=== PATIENT | female | born 1955 | race Caucasian/White ===

== ENCOUNTER 2017-10-30 10:08 | Emergency (ER) | payer OTHER, SELFPAY ==
[2017-10-30 10:11] VITALS: BP 192/89; PULSE 77; RESP 17; TEMP 36.8; O2SAT 94; BMI 24.6
--- NOTE | 2017-10-30 10:24 | ED.VISSUMM ---
- ER Visit Summary Date of Service: 10/30/17 Chief Complaint: Abdominal pain History of Present Illness: The patient is a 62 F presenting with left lower quadrant abdominal pain. She states this started 2 days ago. She had a colonoscopy [address] Lindsay. She states since that time she has had pain in the left lower quadrant. She believes her colonoscopy results were normal. She called Dr. Lindsay's office today and was advised to come to the ED for further evaluation. She denies nausea, vomiting, diarrhea, constipation. Denies blood in her stool. Denies fever. Physical Examination: Vitals are stable. Patient is afebrile. Alert no acute distress. HEENT exam is unremarkable. Neck is supple. Lungs are clear and equal bilaterally. Heart is regular rate and rhythm. Abdomen is soft left lower quadrant tenderness with no guarding or rebound Extremities are unremarkable. Skin is warm and dry. Remainder of exam is unremarkable. Emergency Department Course and Treatment: Patient declined medications. CBC, CMP unremarkable. Urinalysis unremarkable. CT abdomen pelvis with IV and oral contrast shows normal enhanced CT of the abdomen. On reevaluation, patient is resting comfortably. Discussed with Dr. Lindsay. He recommends starting her on Bentyl. She is advised to follow-up with Dr. Lindsay. Advised return to ED if worsening complaints. Disposition: Discharge home Impression: Abdominal pain This note was generated with [employer] dictation software. It may contain incorrect words, spelling, and punctuation that were not noted in review of the chart prior to signing ED Disposition - Plan for ED Patient: Chief Complaint: Abd Pain Instructions: ED Abdominal Pain Unkn Cause Prescriptions: Dicyclomine HCl [Bentyl] 20 mg PO TIDAC #20 capsule Referrals: Gus Lindsay MD [CONSULTING PHYSICIAN] - Donnell Lawson MD [Primary Care Provider] -
[2017-10-30 10:33] LABS: Absolute Lymphocyte Count 1.24 X10^3/ul (0.83-4.51); Absolute Neutrophil Count 3.2 X10^3/uL (2.0-7.7); Basophil# 0.03 X10^3/uL; Basophil% 0.6 % (0-1); Eosinophils% 2.1 % (0-5); Hematocrit 40.1 % (37-47); Hemoglobin 13.1 g/dl (12.0-15.0); Lymphocyte # 1.24 X10^3/ul (4.0); Lymphocyte % 25.5 % (19-41); Mean Corp Hgb Conc 32.7 g/gl (32-36); Mean Corpuscular Hgb 31.5 pg (27.0-32.0); Mean Corpuscular Volume 96.4 fL (81-99); Mean Platelet Vol. 10.7 fl (6.2-12.0); Monocyte% 6.2 % (0-10); Neutrophil # 3.18 X10^3/uL (2.7-7.7); Neutrophil % 65.4 % (47-70); Platelet Count 265 K/mm3 (150-450); RBC Distribution Width CV 11.9 % (11.6-14.6); RBC Distribution Width SD 40.7 fl (35.1-43.9); Red Blood Count 4.16 M/mm3 (4.2-5.4); White Blood Count 4.9 K/mm3 (4.4-11.0)
[2017-10-30 10:34] LABS: POSITIVE COUNT NO; POSITIVE DIFFERENTIAL NO; POSITIVE MORPHOLOGY NO
[2017-10-30 10:40] LABS: Bacteria 0 SEEN /hpf (None Seen); Mucous, Urine 0 SEEN /hpf (<or=2+); Red Blood Cells-Urine 0 SEEN /hpf (0-5); Squamous Epithelial Cells - UA 0 SEEN /hpf (5-10); White Blood Cells 0 SEEN /hpf (0-5)
[2017-10-30 10:42] LABS: Color, Urine Yellow (Yellow); Glucose, Dipstick Normal (Normal); Ketone-Dipstick Negative (Negative); Leukocyte Esterase-Dipstick Negative /ul (Negative); Nitrite-Dipstick Negative (Negative); Occult Blood-Urine Negative /ul (Negative); Protein-Dipstick Negative (Negative); Urine Bilirubin Dipstick Negative (Negative); Urine Clarity Sl. Cloudy (Clear); Urine Urobilinogen Normal (Normal)
[2017-10-30 10:48] LABS: ALB/GLOB Ratio 1.1 RATIO (0.9-2.4); AST(SGOT) 14 U/L (15-37); Alanine Aminotransfer ALT/SGPT 22 U/L (13-56); Albumin, Serum 3.9 g/dL (3.2-5.0); Alkaline Phosphatase 71 U/L (45-117); Anion Gap 6 (5-15); BUN 13 mg/dL (7-18); BUN/Creat Ratio 19.1 RATIO (10-20); Calcium,Total 8.8 mg/dL (8.5-10.1); Chloride 105 mmol/L (98-107); Creatinine, Serum 0.68 mg/dL (0.55-1.02); EST Glomerular Filtration Rate 93 mL/min (>60); Est Glom Filt Rate - Afr Amer 112 mL/min (>60); Estimated Creatinine Clearance 89.65 ml/min; Globulin 3.5 g/dL (2.2-4.2); Glucose 125 mg/dL (74-106); Protein, Total 7.4 g/dL (6.4-8.2); Sodium Level 139 mmol/L (136-145)
[2017-10-30 13:35] VITALS: BP 172/83; PULSE 71; RESP 18; O2SAT 99
--- NOTE | 2017-10-30 14:02 | NURSING ---
TRYING TO REACH DR PFEIFFER, GASTROENTERITIS [phone] [facility]
--- NOTE | 2017-10-30 14:05 | ED.DEP ---
ED Disposition - Plan for ED Patient: Chief Complaint: Abd Pain Instructions: ED Abdominal Pain Unkn Cause Prescriptions: Dicyclomine HCl [Bentyl] 20 mg PO TIDAC #20 capsule Referrals: Donnell Lawson MD [Primary Care Provider] - Gus Lindsay MD [CONSULTING PHYSICIAN] -
[2017-10-30 14:23] VITALS: BP 178/70; PULSE 62; RESP 18; O2SAT 97
== END 2017-10-30 14:24 | disposition home or self-care (01) ==
PROVIDERS: Emergency Provider Emergency Medicine; Family Provider Family Medicine; PCP Family Medicine
DX: R10.32 Left lower quadrant pain (principal); Z79.899 Other long term (current) drug therapy
CPT/HCPCS: 74177; 80053; 81001; 85025; 99283; Q9967; A4216; J2405

== ENCOUNTER 2018-07-22 12:42 | Observation (INO) | payer OTHER, SELFPAY ==
[2018-07-22] VITALS (10 sets, daily range): BP systolic 135–185; BP diastolic 65–95; PULSE 68–102; RESP 14–18; TEMP 36.6–37.6; O2SAT 93–99; BMI 25.1
--- NOTE | 2018-07-22 13:05 | CT_ITS ---
STUDY: CT ABDOMEN AND PELVIS WITH CONTRAST REASON FOR EXAM: Female, 63 years old. One day history of right lower quadrant pain. Comparison is made with prior study dated October 30, 2017. RADIATION DOSAGE (If Supplied By Facility): CTDIvol = ( 13.82 ) mGy, DLP = ( 883.67 ) mGycm TECHNIQUE: Transaxial images were obtained from the dome of the diaphragm to the symphysis pubis with oral contrast. 100 IV/Oral Isovue 300 was administered. Sagittal and coronal images were reconstructed. Individualized dose optimization techniques were used for this CT. COMPARISON: Comparison is made with prior study October 30, 2017. FINDINGS: The visualized lung bases are unremarkable. The visualized portions of the heart are within normal limits. Stable 6 mm cyst in the anterior aspect of the right lobe of the liver. Normal gallbladder and extrahepatic biliary system. Normal spleen. Normal pancreas. Normal bilateral adrenal glands. Normal right kidney. Normal left kidney. Normal visualized stomach. Normal small intestine. Normal colon. There is a tubular, thick-walled appendix (>7mm), consistent with acute appendicitis. There is scattered atherosclerotic calcification of the abdominal aorta, without a demonstrated aneurysm. Normal inferior vena cava. Normal retroperitoneum. Normal urinary bladder. Normal abdominal wall. Normal osseous structures. CT/Abdomen/Pelvis WITH Contrast IMPRESSION: Findings in keeping with a noncomplicated acute appendicitis. Stable subcentimeters cyst in the anterior right lobe of the liver. Electronically Signed: Patrick Snow, at 16:04 EDT , Service support ,
[2018-07-22] MEDS: Ondansetron 4 MG/2 ML Vial IV (13:29)
[2018-07-22] MEDS: 0.9% Normal Saline 1,000 ML 125 ML IV ×2 (13:29→22:06)
[2018-07-22 13:39] LABS: ALB/GLOB Ratio 1.2 RATIO (0.9-2.4); AST(SGOT) 17 U/L (15-37); Alanine Aminotransfer ALT/SGPT 22 U/L (13-56); Albumin, Serum 4.1 g/dL (3.2-5.0); Alkaline Phosphatase 85 U/L (45-117); Anion Gap 7 (5-15); BUN 9 mg/dL (7-18); BUN/Creat Ratio 14.5 RATIO (10-20); Calcium,Total 9.4 mg/dL (8.5-10.1); Chloride 97 mmol/L (98-107); Creatinine, Serum 0.62 mg/dL (0.55-1.02); EST Glomerular Filtration Rate 103 mL/min (>60); Est Glom Filt Rate - Afr Amer 125 mL/min (>60); Estimated Creatinine Clearance 97.06 ml/min; Globulin 3.3 g/dL (2.2-4.2); Glucose 149 mg/dL (74-106); Lipase 75 U/L (73-393); Potassium 3.6 mmol/L (3.5-5.1); Protein, Total 7.4 g/dL (6.4-8.2); Sodium Level 130 mmol/L (136-145)
[2018-07-22 13:41] LABS: Bacteria 0 SEEN /hpf (None Seen); Mucous, Urine 0 SEEN /hpf (<or=2+); Red Blood Cells-Urine 0 SEEN /hpf (0-5); Squamous Epithelial Cells - UA 0 SEEN /hpf (5-10); White Blood Cells 0 SEEN /hpf (0-5)
[2018-07-22 13:42] LABS: Color, Urine Yellow (Yellow); Glucose, Dipstick Normal (Normal); Ketone-Dipstick Negative (Negative); Leukocyte Esterase-Dipstick 25 /ul (Negative); Nitrite-Dipstick Negative (Negative); Occult Blood-Urine Negative /ul (Negative); Protein-Dipstick 15 mg/dl (Negative); Urine Bilirubin Dipstick Negative (Negative); Urine Clarity Sl. Cloudy (Clear); Urine Urobilinogen Normal (Normal)
[2018-07-22 13:43] LABS: Absolute Neutrophil Count 8.3 X10^3/uL (2.0-7.7); Basophil# 0.01 X10^3/uL; Basophil% 0.1 % (0-1); Hematocrit 38.7 % (37-47); Hemoglobin 12.9 g/dl (12.0-15.0); Lymphocyte % 5.5 % (19-41); Mean Corp Hgb Conc 33.3 g/gl (32-36); Mean Corpuscular Hgb 30.6 pg (27.0-32.0); Mean Corpuscular Volume 91.7 fL (81-99); Mean Platelet Vol. 11.2 fl (6.2-12.0); Monocyte% 3.3 % (0-10); Neutrophil # 8.34 X10^3/uL (2.7-7.7); Platelet Count 253 K/mm3 (150-450); RBC Distribution Width CV 11.7 % (11.6-14.6); RBC Distribution Width SD 38.8 fl (35.1-43.9); Red Blood Count 4.22 M/mm3 (4.2-5.4); White Blood Count 9.2 K/mm3 (4.4-11.0)
[2018-07-22 13:44] LABS: Differential Indicated SCAN CRITERIA MET; POSITIVE COUNT NO; POSITIVE DIFFERENTIAL YES; POSITIVE MORPHOLOGY NO
[2018-07-22 13:46] LABS: Lactic Acid 1.5 mmol/L (0.4-2.0)
--- NOTE | 2018-07-22 16:03 | ED.VISSUMM ---
- ER Visit Summary Date of Service: 07/22/18 Chief Complaint: [Abdominal pain] History of Present Illness: The patient is a 63 F [presents the emergency department with complaint of abdominal pain since around 1:30 AM. Patient states the pains had a mid abdomen initially. Patient states the pain is at its worst was about an 8 out of 10 currently rates it a 6 out of 10. Patient had multiple episodes of nausea vomiting. She denies any significant diarrhea. She denies any fever. She denies urinary symptoms.] Physical Examination: [HEENT-PERRLA, EOMI. Cranial nerves II through XII grossly intact. TMs clear. Mucous membranes moist. No adenopathy. Cardiovascular-regular rate and rhythm without murmur or ectopy Lungs-clear to auscultation, chest wall stable without crepitus or subcu emphysema Abdomen-normoactive bowel sounds, soft. Patient has tenderness to palpation over right lower quadrant with some guarding. There is no rebound, rigidity, or perineal signs. Extremities-intact ?4, normal range of motion, normal pulses, atraumatic] Test Results: [CBC with differential obtained showed a white count of 9.2. Hemoglobin 13, hematocrit 38.7, platelets 253. Chemistries unremarkable. LFTs were normal. Lipase was 75. Urinalysis was normal. CT scan of the abdomen pelvis awaiting official report from radiology but on my interpretation patient has acute appendicitis.] Emergency Department Course and Treatment: [Patient was given initially normal saline. Patient did not want anything for pain. Patient was started on Zosyn 4.5 g IV. Case was discussed with general surgeon on-call Dr. Cárdenas who will evaluate patient in the emergency department.] Treatment Plan: [Admit for surgical intervention.] Disposition: [Admit] Impression: [Acute appendicitis] This note was generated with [employer] dictation software. It may contain incorrect words, spelling, and punctuation that were not noted in review of the chart prior to signing ED Disposition - Plan for ED Patient: Referrals: Donnell Lawson MD [Primary Care Provider] -
--- NOTE | 2018-07-22 16:32 | PCM.HP.STD ---
History of Present Illness Date of Admission: 07/22/18 The patient is a 63 year old F presented to the ER due to abdominal pain and nausea vomiting. Patient states periumbilical abdominal pain started 1:30 in the morning and now is more in the right lower quadrant. Patient last had water around 1230 but nothing solid today. Patient states she has had normal bowel movements during the night. She has CT abdomen pelvis which was consistent with acute appendicitis. White blood count within normal range. Patient was given Zosyn IV in the ER. Past Medical History Allergies erythromycin base Allergy (Verified 07/22/18 12:44) Unknown Tetracyclines Allergy (Verified 07/22/18 12:44) Unknown acetaminophen [From Vicodin] Adverse Reaction (Verified 07/22/18 12:44) Vomiting codeine Adverse Reaction (Verified 07/22/18 12:44) Other hydrocodone [From Vicodin] Adverse Reaction (Verified 07/22/18 12:44) Vomiting Home Medications: Ambulatory Orders Medication Instructions Recorded Dicyclomine HCl [Bentyl] 20 mg PO TIDAC #20 capsule 10/30/17 Escitalopram Oxalate [Lexapro] 5 mg PO DAILY 10/30/17 Simvastatin [Zocor] 20 mg PO QHS 10/30/17 Surgical History: - - Tubal and left breast biopsy benign per patient Psychiatric History: - - Patient on Lexapro and service for anxiety or depression but symptoms are controlled 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 Denies: Chills Gastrointestinal: Reports: Abdominal Pain, Nausea, Vomiting VTE Information - Inpt Only VTE Present on Admission: Yes VTE Mechan Device Prophylaxis: SCD's - Physical Exam General: Alert, Oriented x3, Cooperative, No apparent distress HEENT: Atraumatic Lungs: Normal air movement Cardiovascular: Regular rate Abdomen: Soft, Non-Distended, Tender - Sinus the right lower quadrant, no peritoneal signs Extremities: No clubbing, No cyanosis, No edema Neurological: Cranial nerves II-XII grossly intact Psych/Mental Status: Normal Affect Vital Signs Temp Pulse Resp BP Pulse Ox 98.6 F 72 14 153/65 H 99 07/22/18 12:42 07/22/18 15:50 07/22/18 15:50 07/22/18 15:50 07/22/18 15:50 Oxygen Delivery Method Room Air Weight: 169 lb 15.622 oz Body Mass Index (BMI) 25.1 Laboratory Tests Past 24 Hrs 07/22/18 07/22/18 07/22/18 13:10 13:10 13:10 WBC 9.2 RBC 4.22 Hgb 12.9 Hct 38.7 MCV 91.7 MCH 30.6 MCHC 33.3 RDW 11.7 RDW Differential 38.8 Plt Count 253 MPV 11.2 Immature Gran % (Auto) 0.100 Neut % (Auto) 91.0 H Lymph % (Auto) 5.5 L [place] % (Auto) 3.3 Eos % (Auto) 0.0 Baso % (Auto) 0.1 Absolute Neuts (auto) 8.3 H Absolute Lymphs (auto) 0.50 L Total Counted Not Reportable Sodium 130 L Potassium 3.6 Chloride 97 L Carbon Dioxide 26.0 Anion Gap 7 BUN 9 Creatinine 0.62 Estim Creat Clear Calc 97.06 Est GFR (MDRD) Af Amer 125 Est GFR (MDRD) Non-Af 103 BUN/Creatinine Ratio 14.5 Glucose 149 H Lactic Acid 1.5 Calcium 9.4 Total Bilirubin 0.90 AST 17 ALT 22 Alkaline Phosphatase 85 Total Protein 7.4 Albumin 4.1 Globulin 3.3 Albumin/Globulin Ratio 1.2 Lipase 75 Urine Color Urine Clarity Urine pH Ur Specific [place] Urine Protein Urine Glucose (UA) Urine Ketones Urine Occult Blood Urine Nitrite Urine Bilirubin Urine Urobilinogen Ur Leukocyte Esterase Urine RBC Urine WBC Ur Squamous Epith Cells Urine Bacteria Urine Mucus 07/22/18 13:30 WBC RBC Hgb Hct MCV MCH MCHC RDW RDW Differential Plt Count MPV Immature Gran % (Auto) Neut % (Auto) Lymph % (Auto) [place] % (Auto) Eos % (Auto) Baso % (Auto) Absolute Neuts (auto) Absolute Lymphs (auto) Total Counted Sodium Potassium Chloride Carbon Dioxide Anion Gap BUN Creatinine Estim Creat Clear Calc Est GFR (MDRD) Af Amer Est GFR (MDRD) Non-Af BUN/Creatinine Ratio Glucose Lactic Acid Calcium Total Bilirubin AST ALT Alkaline Phosphatase Total Protein Albumin Globulin Albumin/Globulin Ratio Lipase Urine Color Yellow Urine Clarity Sl. Cloudy Urine pH 7.0 Ur Specific [place] 1.010 Urine Protein 15 H Urine Glucose (UA) Normal Urine Ketones Negative Urine Occult Blood Negative Urine Nitrite Negative Urine Bilirubin Negative Urine Urobilinogen Normal Ur Leukocyte Esterase 25 H Urine RBC 0 SEEN Urine WBC 0 SEEN Ur Squamous Epith Cells 0 SEEN Urine Bacteria 0 SEEN Urine Mucus 0 SEEN Assessment/Plan 63-year-old female with acute appendicitis 1. Discussed procedure laparoscopic appendectomy, possible open, possible bowel resection along with the risk but not limited to bleeding, infection/abscess, injury to another organ (small bowel, colon, etc.), adhesion, hernia at incision sites, and anesthesia. Patient no further questions at this time. Liss Cárdenas M.D. Pager: [phone] [facility] [address] [place] [address], [address] [place] [address] Office: [phone]
--- NOTE | 2018-07-22 16:35 | HP.PCM_ITS ---
History of Present Illness Date of Admission: 07/22/18 The patient is a 63 year old F presented to the ER due to abdominal pain and nausea vomiting. Patient states periumbilical abdominal pain started 1:30 in the morning and now is more in the right lower quadrant. Patient last had water around 1230 but nothing solid today. Patient states she has had normal bowel movements during the night. She has CT abdomen pelvis which was consistent with acute appendicitis. White blood count within normal range. Patient was given Zosyn IV in the ER. Past Medical History Allergies erythromycin base Allergy (Verified 07/22/18 12:44) Unknown Tetracyclines Allergy (Verified 07/22/18 12:44) Unknown acetaminophen [From Vicodin] Adverse Reaction (Verified 07/22/18 12:44) Vomiting codeine Adverse Reaction (Verified 07/22/18 12:44) Other hydrocodone [From Vicodin] Adverse Reaction (Verified 07/22/18 12:44) Vomiting Home Medications: Ambulatory Orders Medication Instructions Recorded Dicyclomine HCl [Bentyl] 20 mg PO TIDAC #20 capsule 10/30/17 Escitalopram Oxalate [Lexapro] 5 mg PO DAILY 10/30/17 Simvastatin [Zocor] 20 mg PO QHS 10/30/17 Surgical History: - - Tubal and left breast biopsy benign per patient Psychiatric History: - - Patient on Lexapro and service for anxiety or depression but symptoms are controlled 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 Denies: Chills Gastrointestinal: Reports: Abdominal Pain, Nausea, Vomiting VTE Information - Inpt Only VTE Present on Admission: Yes VTE Mechan Device Prophylaxis: SCD's - Physical Exam General: Alert, Oriented x3, Cooperative, No apparent distress HEENT: Atraumatic Lungs: Normal air movement Cardiovascular: Regular rate Abdomen: Soft, Non-Distended, Tender - Sinus the right lower quadrant, no peritoneal signs Extremities: No clubbing, No cyanosis, No edema Neurological: Cranial nerves II-XII grossly intact Psych/Mental Status: Normal Affect Vital Signs Temp Pulse Resp BP Pulse Ox 98.6 F 72 14 153/65 H 99 07/22/18 12:42 07/22/18 15:50 07/22/18 15:50 07/22/18 15:50 07/22/18 15:50 Oxygen Delivery Method Room Air Weight: 169 lb 15.622 oz Body Mass Index (BMI) 25.1 Laboratory Tests Past 24 Hrs 07/22/18 07/22/18 07/22/18 13:10 13:10 13:10 WBC 9.2 RBC 4.22 Hgb 12.9 Hct 38.7 MCV 91.7 MCH 30.6 MCHC 33.3 RDW 11.7 RDW Differential 38.8 Plt Count 253 MPV 11.2 Immature Gran % (Auto) 0.100 Neut % (Auto) 91.0 H Lymph % (Auto) 5.5 L [place] % (Auto) 3.3 Eos % (Auto) 0.0 Baso % (Auto) 0.1 Absolute Neuts (auto) 8.3 H Absolute Lymphs (auto) 0.50 L Total Counted Not Reportable Sodium 130 L Potassium 3.6 Chloride 97 L Carbon Dioxide 26.0 Anion Gap 7 BUN 9 Creatinine 0.62 Estim Creat Clear Calc 97.06 Est GFR (MDRD) Af Amer 125 Est GFR (MDRD) Non-Af 103 BUN/Creatinine Ratio 14.5 Glucose 149 H Lactic Acid 1.5 Calcium 9.4 Total Bilirubin 0.90 AST 17 ALT 22 Alkaline Phosphatase 85 Total Protein 7.4 Albumin 4.1 Globulin 3.3 Albumin/Globulin Ratio 1.2 Lipase 75 Urine Color Urine Clarity Urine pH Ur Specific [place] Urine Protein Urine Glucose (UA) Urine Ketones Urine Occult Blood Urine Nitrite Urine Bilirubin Urine Urobilinogen Ur Leukocyte Esterase Urine RBC Urine WBC Ur Squamous Epith Cells Urine Bacteria Urine Mucus 07/22/18 13:30 WBC RBC Hgb Hct MCV MCH MCHC RDW RDW Differential Plt Count MPV Immature Gran % (Auto) Neut % (Auto) Lymph % (Auto) [place] % (Auto) Eos % (Auto) Baso % (Auto) Absolute Neuts (auto) Absolute Lymphs (auto) Total Counted Sodium Potassium Chloride Carbon Dioxide Anion Gap BUN Creatinine Estim Creat Clear Calc Est GFR (MDRD) Af Amer Est GFR (MDRD) Non-Af BUN/Creatinine Ratio Glucose Lactic Acid Calcium Total Bilirubin AST ALT Alkaline Phosphatase Total Protein Albumin Globulin Albumin/Globulin Ratio Lipase Urine Color Yellow Urine Clarity Sl. Cloudy Urine pH 7.0 Ur Specific [place] 1.010 Urine Protein 15 H Urine Glucose (UA) Normal Urine Ketones Negative Urine Occult Blood Negative Urine Nitrite Negative Urine Bilirubin Negative Urine Urobilinogen Normal Ur Leukocyte Esterase 25 H Urine RBC 0 SEEN Urine WBC 0 SEEN Ur Squamous Epith Cells 0 SEEN Urine Bacteria 0 SEEN Urine Mucus 0 SEEN Assessment/Plan 63-year-old female with acute appendicitis 1. Discussed procedure laparoscopic appendectomy, possible open, possible bowel resection along with the risk but not limited to bleeding, infection/abscess, injury to another organ (small bowel, colon, etc.), adhesion, hernia at incision sites, and anesthesia. Patient no further questions at this time. Liss Cárdenas M.D. Pager: [phone] [facility] [address] [place] [address], [address] [place] [address] Office: [phone]
--- NOTE | 2018-07-22 16:35 | CASEMGMT ---
RN CM Assessment Introduced role of RN CM to patient.? Patient is alert, oriented and able?to participate in RN CM Assessment. ?Care providers, pharmacy, and demographics verified. Presentation: Abd Pain, N/V Admit Dx: Acute Appendicitis Re-Admit: No Barriers/Issues: None PCP: Donnell Lawson. [facility] has not seen him this year and seen Dr Gillis. Specialists: [facility] Dr Karine Hewitt Preferred [facility]acy: [facility] Insurance: MMO Rx Benefit: Yes? LNOK: Brad Agarwal LW/HPOA: None, Would like information Living Arrangements:?Lives with her in a SS home, 2-3 steps to enter. ADL?s: Independent with ambulation and ADL's. 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 [facility] works out at the gym. Transportation: Patient drives, to transport on DC DME: None HHC: None SNF: None Goal: Home, denies questions or concerns. DC PLAN: Home with no anticipated needs identified at this time. FELIX Nguyen
[2018-07-22] MEDS: Bupiv/Epi 0.5% Mpf 30 ML Vial (17:37)
--- NOTE | 2018-07-22 17:37 | OP.PCM_ITS ---
Report of Operation Date of Procedure: 07/22/18 Pre-Operative Diagnosis: Acute appendicitis Post-Operative Diagnosis: Same Surgery/Procedure Performed:: Laparoscopic appendectomy Type of Anesthesia:: General/Supplemental Anesthesiologist: Sarah Elizabeth Special Medications: Zosyn 4.5 g IV x1 given in the ER for acute appendicitis Specimen's removed: Appendix Estimated Blood Loss (mL): < 5 cc Fluids Replaced: 1000 cc Description of Procedure: Indications: 63-year-old female presented to the ER with new right lower quadrant pain this morning 1:30 AM. On workup she was found to have acute appendicitis on CT and a leukocytosis of 9.2 with a left shift. Patient was started on antibiotics in the ER for acute appendicitis-4.5 g IV x1 Description of the procedure: The patient was placed on operating table in supine position. General anesthesia was induced. A timeout was completed verifying correct patient, procedure, sacrum position and special, prior to beginning procedure. A Cantor catheter and orogastric tube placed. Abdomen was prepped and draped in usual sterile fashion. Incision was made in the natural skin line above the umbilicus with a 15 blade scalpel. The fascia was elevated and incised. Entry into the peritoneum was confirmed visually and no bowel was noted in the vicinity of the incision. The Stewart trocar was placed under direct vision. Abdomen insufflated with a pressure of 12-15 mmHg. Patient tolerated insertion well. The scope was inserted and the abdomen inspected. No injuries from initial trocar placement were noted. Minimal amount of fluid was seen in the right lower quadrant. An direct visualization 2 -5 mm trocars were placed one above t he symphysis pubis and below the hairline and one in the left lower quadrant lateral to the rectus muscle. Care is taken to avoid injury to the bladder and inferior epigastric vessels. The table was placed in Trendelenburg position with the right side elevated. The appendix was grasped with atraumatic grasper and elevated. It was noted to be inflamed. A window was developed in the mesoappendix at the point between the base of the appendix and the cecum. An endoscopic 45 mm linear cutting stapler blue load was then used to divide and staple the base of the appendix. Enseal was used to divide the mesoappendix. The appendix was withdrawn into the Stewart trocar after being placed endoscopically retrieval bag. Appendix was sent to pathology. The appendiceal stump was then irrigated and hemostasis was assured. Fluid was suctioned no other pathology was identified. Secondary trochars were removed under direct visualization. No bleeding was noted trocar sites. The laparoscope withdrawn and the umbilical trocar removed. The abdomen was allowed to collapse. Local anesthesia of 20 mL of 0.5% Marcaine was used at the incision sites. The umbilical trocar site was closed with the [id number] 0 Vicryl suture. The skin was closed up to clear sutures of 4-0 Monocryl and Steri-Strips. The patient was extubated. The patient tolerated the procedure well and was taken to the postanesthesia care unit in satisfactory condition. - Complications none
--- NOTE | 2018-07-22 17:48 | PCM.DC.APPY ---
Discharge Diet: Light diet - advance as tolerated Discharge Activity: May not drive while taking narcotic pain medications. May shower in (days): 1 Lifting Restrictions: No lifting greater than 20 pounds x 4 weeks no strenuous exercise for 8 wks Call your doctor if your incision/area has: Continuous Slow Oozing, Sudden Increased Bleeding, Increased Pain/ Swelling, Increased Redness, Foul Smelling Discharge, Swelling at the incision site Call your doctor if you observe: Fever of 101 or Higher Remove Dressing in (days):: 1 Additional Instructions: Okay to take ibuprofen 400-600 mg PO q6hr PRN along with the Percocet. Avoid Tylenol since there is already Tylenol in the Percocet. Take all pain meds with food. Percocet can cause constipation recommend taking daily stool softener (i.e. Colace/docusate) while taking the pain meds. Recommend starting some MiraLAX in 1 to 2 days if no bowel movement. If still no bowel movement the following day recommend taking magnesium citrate half the bottle and waiting 4-6 hours if still no results take the other half the bottle. Medications to take at Discharge Dicyclomine HCl [Bentyl] 20 mg PO TIDAC #20 capsule 10/30/17 Escitalopram Oxalate [Lexapro] 5 mg PO DAILY 10/30/17 Simvastatin [Zocor] 20 mg PO QHS 10/30/17 Oxycodone HCl/Acetaminophen [Percocet 5/325] 1 - 2 tablet PO Q6H PRN PRN 5 Days #25 tablet 07/22/18 Allergies/Adverse Reactions: Allergies erythromycin base Allergy (Verified 07/22/18 12:44) Unknown Tetracyclines Allergy (Verified 07/22/18 12:44) Unknown acetaminophen [From Vicodin] Adverse Reaction (Verified 07/22/18 12:44) Vomiting codeine Adverse Reaction (Verified 07/22/18 12:44) Other hydrocodone [From Vicodin] Adverse Reaction (Verified 07/22/18 12:44) Vomiting The following prescriptions were given: Oxycodone HCl/Acetaminophen [Percocet 5/325] 1 - 2 tablet PO Q6H PRN PRN 5 Days #25 tablet PRN Reason: Pain Primary Care Physician: Donnell Lawson MD [Primary Care Provider] - Test Results: Test results from this visit will be discussed in further detail at your follow-up appointment, if applicable. Please Follow Up With: Liss Cárdenas MD - At 5:00 on the weekends call [phone] with any concerns When: Call the office for a follow-up appointment in 2 weeks [phone] Proposed Discharge Date: 07/22/18
--- NOTE | 2018-07-22 17:51 | DCINST_ITS ---
Discharge Diet: Light diet - advance as tolerated Discharge Activity: May not drive while taking narcotic pain medications. May shower in (days): 1 Lifting Restrictions: No lifting greater than 20 pounds x 4 weeks no strenuous exercise for 8 wks Call your doctor if your incision/area has: Continuous Slow Oozing, Sudden Increased Bleeding, Increased Pain/ Swelling, Increased Redness, Foul Smelling Discharge, Swelling at the incision site Call your doctor if you observe: Fever of 101 or Higher Remove Dressing in (days):: 1 Additional Instructions: Okay to take ibuprofen 400-600 mg PO q6hr PRN along with the Percocet. Avoid Tylenol since there is already Tylenol in the Percocet. Take all pain meds with food. Percocet can cause constipation recommend taking daily stool softener (i.e. Colace/docusate) while taking the pain meds. Recommend starting some MiraLAX in 1 to 2 days if no bowel movement. If still no bowel movement the following day recommend taking magnesium citrate half the bottle and waiting 4-6 hours if still no results take the other half the bottle. Medications to take at Discharge Dicyclomine HCl [Bentyl] 20 mg PO TIDAC #20 capsule 10/30/17 Escitalopram Oxalate [Lexapro] 5 mg PO DAILY 10/30/17 Simvastatin [Zocor] 20 mg PO QHS 10/30/17 Oxycodone HCl/Acetaminophen [Percocet 5/325] 1 - 2 tablet PO Q6H PRN PRN 5 Days #25 tablet 07/22/18 Allergies/Adverse Reactions: Allergies erythromycin base Allergy (Verified 07/22/18 12:44) Unknown Tetracyclines Allergy (Verified 07/22/18 12:44) Unknown acetaminophen [From Vicodin] Adverse Reaction (Verified 07/22/18 12:44) Vomiting codeine Adverse Reaction (Verified 07/22/18 12:44) Other hydrocodone [From Vicodin] Adverse Reaction (Verified 07/22/18 12:44) Vomiting The following prescriptions were given: Oxycodone HCl/Acetaminophen [Percocet 5/325] 1 - 2 tablet PO Q6H PRN PRN 5 Days #25 tablet PRN Reason: Pain Primary Care Physician: Donnell Lawson MD [Primary Care Provider] - Test Results: Test results from this visit will be discussed in further detail at your follow- up appointment, if applicable. Please Follow Up With: Liss Cárdenas MD - At 5:00 on the weekends call [phone] with any concerns When: Call the office for a follow-up appointment in 2 weeks [phone] Proposed Discharge Date: 07/22/18
--- NOTE | 2018-07-22 18:35 | APP_PTH ---
PATIENT: GWYN WISEMAN LOC: MS3 U#:[id number] AGE/SX: 63/F ROOM: MS305 RE07/22/[address]: Dr. Liss Cárdenas MD : 1955 BED: 1 DIS: 07/23/2018 SPEC #: [id number] RECD: 07/23/18 07:07 STATUS: TRAVON REQ #: [id number] MONICO: 07/22/18 18:[address]: Liss Cárdenas DEPT: SURGICAL PATHOLOGY RECD BY: Stepan Mayes ENTERED: 07/23/18 10:47 SP TYPE: APPENDIX OTHR DR: Dr. Donnell Lawson MD Tissues: Appendix, NOS Procedures: Surgery Specimen Level III HEADER OPERATION: Laparoscopic appendectomy PRE-OP DIAGNOSIS: Acute appendicitis TISSUE SUBMITTED: Appendix MICROSCOPIC DIAGNOSIS Appendix, appendectomy: Acute suppurative appendicitis with microscopic perforation and serosal abscess formation. CE:mark 07/24/18 MICROSCOPIC DESCRIPTION Slides are reviewed. GROSS DESCRIPTION Received is one container labeled with the patient's name and designated appendix. The specimen consists of an appendix measuring 9 cm in length and up to 1 cm in average diameter. The attached periappendiceal adipose tissue measures up to 2 cm in width. The serosal surface is covered with anders, purulent exudate. No obvious perforation is identified. The lumen is congested and hemorrhagic. No fecalith is identified. Leaf Sorter sections are submitted in one cassette. / SJ:mark 07/23/18 TC:2 [facility]: [id number]
[2018-07-23 04:00] VITALS: BP 141/70; PULSE 84; RESP 14; TEMP 36.8; O2SAT 95
--- NOTE | 2018-07-23 08:28 | PN.SURG_ITS ---
Subjective: Patient tolerated clears, ambulating, positive flatus pain controlled - Physical Exam General: Alert, Oriented x3, Cooperative, No apparent distress HEENT: Atraumatic Lungs: Normal air movement Cardiovascular: Regular rate Abdomen: Soft, Non-Distended, Tender - Near incisions, incisions dressed with OpSite's, no peritoneal signs Extremities: No clubbing, No cyanosis, No edema Vital Signs Temp Pulse Resp BP Pulse Ox 98.2 F 84 14 141/70 H 95 07/23/18 04:00 07/23/18 04:00 07/23/18 04:00 07/23/18 04:00 07/23/18 04:00 Oxygen Delivery Method Room Air Weight: 169 lb 15.622 oz Body Mass Index (BMI) 25.1 Intake and Output for Last 24 Hours 07/21/18 07/22/18 07/23/18 23:59 23:59 23:59 Intake Total 2575 / 2575 831 / 831 Output Total 700 / 700 700 / 700 Balance 1875 / 1875 131 / 131 Laboratory Tests Past 24 Hrs 07/22/18 07/22/18 07/22/18 13:10 13:10 13:10 WBC 9.2 RBC 4.22 Hgb 12.9 Hct 38.7 MCV 91.7 MCH 30.6 MCHC 33.3 RDW 11.7 RDW Differential 38.8 Plt Count 253 MPV 11.2 Immature Gran % (Auto) 0.100 Neut % (Auto) 91.0 H Lymph % (Auto) 5.5 L [place] % (Auto) 3.3 Eos % (Auto) 0.0 Baso % (Auto) 0.1 Absolute Neuts (auto) 8.3 H Absolute Lymphs (auto) 0.50 L Total Counted Not Reportable Sodium 130 L Potassium 3.6 Chloride 97 L Carbon Dioxide 26.0 Anion Gap 7 BUN 9 Creatinine 0.62 Estim Creat Clear Calc 97.06 Est GFR (MDRD) Af Amer 125 Est GFR (MDRD) Non-Af 103 BUN/Creatinine Ratio 14.5 Glucose 149 H Lactic Acid 1.5 Calcium 9.4 Total Bilirubin 0.90 AST 17 ALT 22 Alkaline Phosphatase 85 Total Protein 7.4 Albumin 4.1 Globulin 3.3 Albumin/Globulin Ratio 1.2 Lipase 75 Urine Color Urine Clarity Urine pH Ur Specific [place] Urine Protein Urine Glucose (UA) Urine Ketones Urine Occult Blood Urine Nitrite Urine Bilirubin Urine Urobilinogen Ur Leukocyte Esterase Urine RBC Urine WBC Ur Squamous Epith Cells Urine Bacteria Urine Mucus 07/22/18 13:30 WBC RBC Hgb Hct MCV MCH MCHC RDW RDW Differential Plt Count MPV Immature Gran % (Auto) Neut % (Auto) Lymph % (Auto) [place] % (Auto) Eos % (Auto) Baso % (Auto) Absolute Neuts (auto) Absolute Lymphs (auto) Total Counted Sodium Potassium Chloride Carbon Dioxide Anion Gap BUN Creatinine Estim Creat Clear Calc Est GFR (MDRD) Af Amer Est GFR (MDRD) Non-Af BUN/Creatinine Ratio Glucose Lactic Acid Calcium Total Bilirubin AST ALT Alkaline Phosphatase Total Protein Albumin Globulin Albumin/Globulin Ratio Lipase Urine Color Yellow Urine Clarity Sl. Cloudy Urine pH 7.0 Ur Specific [place] 1.010 Urine Protein 15 H Urine Glucose (UA) Normal Urine Ketones Negative Urine Occult Blood Negative Urine Nitrite Negative Urine Bilirubin Negative Urine Urobilinogen Normal Ur Leukocyte Esterase 25 H Urine RBC 0 SEEN Urine WBC 0 SEEN Ur Squamous Epith Cells 0 SEEN Urine Bacteria 0 SEEN Urine Mucus 0 SEEN Medical Necessity - Tobacco Use Smoking Status: Never smoker Assessment/Plan 63-year-old female with acute appendicitis postop 1 status post laparoscopic appendectomy 1. Patient tolerated clears on a regular breakfast this morning, ambulating, pain controlled okay to IN if she is able to tolerate breakfast. Liss Cárdenas M.D. Pager: [phone] [facility] [address] [place] [address], [address] [place] [address] Office: [phone]
[2018-07-23 09:57] VITALS: BP 138/58; PULSE 76; RESP 18; TEMP 36.6; O2SAT 94
== END 2018-07-23 10:18 | disposition home or self-care (01) ==
LOC: ED 16:14 → SDC 16:20 → MS3 16:21 → SDC 17:54
PROVIDERS: Admitting Provider Surgery; Emergency Provider Emergency Medicine; Family Provider Family Medicine; PCP Family Medicine; Visit Provider Surgery
PROC: 0DTJ4ZZ Resection of Appendix, Percutaneous Endoscopic Approach (ICD-10-PCS; CPT 44970; principal; 2018-07-22 18:15)
DX: K35.80 Unspecified acute appendicitis (principal); F41.9 Anxiety disorder, unspecified; F32.9 Major depressive disorder, single episode, unspecified; Z79.899 Other long term (current) drug therapy; E78.00 Pure hypercholesterolemia, unspecified; Z87.891 Personal history of nicotine dependence
CPT/HCPCS: 00840; 44970; 74177; 80053; 81001; 83605; 83690; 85025; 88304; 96361; 96374; 99218; 99284; J7030; Q9967; A4216; C1760; G0378; J2405

== ENCOUNTER 2020-05-26 08:19 | Outpatient (RCR) | payer MEDICARE, SELFPAY ==
[2018-07-22 18:56] VITALS: BMI 25.1
[2020-05-26] MEDS: COVID-19 VACC, MRNA(PFIZER)/PF 30 MCG/0.3 ML SYRINGE IM (18:39)
[2020-06-16] MEDS: COVID-19 VACC, MRNA(PFIZER)/PF 30 MCG/0.3 ML SYRINGE IM (17:14)
== END 2020-08-23 23:59 ==
LOC: IMMUN 08:19
PROVIDERS: PCP Family Medicine; Referring Provider Family Medicine; Visit Provider Family Medicine
DX: Z23 Encounter for immunization (principal)
CPT/HCPCS: 0001A; 0002A; 91300

== ENCOUNTER 2021-10-21 14:29 | Emergency (ER) | payer MEDICARE, SELFPAY ==
[2021-10-21 14:30] VITALS: BP 185/79; PULSE 70; RESP 16; TEMP 36.6; O2SAT 98; BMI 22.3
--- NOTE | 2021-10-21 15:16 | EDS_ITS ---
HPI History of Present Illness Chief Complaint: Back Informant: patient Narrative Narrative: Patient is a 66-year-old female presenting with left lower back and groin pain. Patient states she not been working out for 6 weeks because of tendinitis in her elbows. She started working out again yesterday and was doing squats with a resistance band. Throughout the night she developed worsening pain in her left lower back rating to her groin. She took Advil at 930 this morning and then an old Skelaxin prescription at 1220 this afternoon. She continues to have significant pain and is especially worried because of the pain she has in her groin. The pain is worse whenever she tries to move. It is constant but worse with movement and become sharp. She denies any bowel or bladder incontinence. She denies any nausea or vomiting. [facility] Medical History Hemorrhoids High cholesterol Home Medications escitalopram oxalate 10 mg tablet 5 mg PO DAILY mood stabilizer 10/30/17 [History Last Taken 07/21/182199] simvastatin 20 mg tablet 20 mg PO QHS 10/30/17 [History Last Taken 07/21/180] cyclobenzaprine 10 mg tablet 10 mg PO TID PRN muscle spasm #14 tabs 10/21/21 [Rx Last Taken Unknown] Allergy/AdvReac Type Severity Reaction Status Date / Time erythromycin base Allergy Unknown Verified 10/21/21 14:32 Tetracyclines Allergy Unknown Verified 10/21/21 14:32 codeine AdvReac Other Verified 10/21/21 14:32 hydrocodone [From Vicodin] AdvReac Vomiting Verified 10/21/21 14:32 Family History Mother Breast cancer Gallbladder cancer Hypertension Father Hypertension Parkinson disease Surgical History History of Hx of appendectomy Hx of colonoscopy Hx of tubal ligation Social History (Updated 08/06/18 @ 14:20 by Elisabet SEGURA PA-C) Smoking Status: Never smoker second hand exposure: No alcohol intake: current alcohol intake frequency: a few times a week substance use type: does not use caffeine: Yes what type of physical activity do you participate in: walking and weight training frequency: 3-4 times per week ROS ROS ED Constitutional Constitutional ED: Denies chills or fever(s) Eyes Eyes: Denies change in vision ENT ENT ED: Denies rhinorrhea or sore throat Cardiovascular Cardiovascular: Denies chest pain or palpitations Respiratory/Chest Respiratory/Chest: Denies dyspnea Gastrointestinal Gastrointestinal: Denies abdominal pain, nausea or vomiting Genitourinary Genitourinary ED: Denies dysuria, hematuria or urinary frequency Musculoskeletal Musculoskeletal: Reports back pain and other Details: left hip pain/ groin pain ; Denies arthralgias, myalgias or neck pain Integumentary Denies Abrasions or rash Neurologic Neurologic: Denies headache(s), paresthesias or weakness Psychiatric Psychiatric: Denies anxiety EXAM Physical Exam Const Vital Signs: 10/21/21 14:30 Temperature 97.8 F Temperature Source Temporal Pulse Rate 70 Respiratory Rate 16 Blood Pressure 185/79 H Blood Pressure Mean 114 Pulse Ox 98 Oxygen Delivery Method Room Air Positive well nourished and well developed General Appearance ED: well developed and NAD HEENT Reports moist mucous membranes Negative for trauma Eyes PERRL and EOMs intact bilaterally Neck supple and no JVD Resp normal respiratory effort and clear to auscultation bilaterally Cardio regular rate, regular rhythm and no murmurs Cardio Narrative: 2+ DP and radial pulses GI normal to inspection, nondistended, normoactive bowel sounds, soft to palpation, non-tender and no masses Back/Spine normal to inspection and no thoracic nor lumbar tenderness General Back: Negative for CVA tenderness Lumbar Spine / Lower Back: straight leg raise negative bilaterally Extremity normal to inspection Extremity Narrative: No reproducible tenderness to palpation. Patient does have pain in her left groin with internal and external rotation of the hip as well as when she actively flexes her hip. General Extremety ED: Negative for edema or tenderness General Extremity: Negative for edema Neuro oriented x3 and no sensory deficits noted Motor Exam: strength 5/5 throughout Skin no rashes or lesions noted and no wounds MDM MDM MDM Narrative Medical decision making narrative: Patient evaluated for left lower back and groin pain after doing squatting exercises. I suspect this is muscle skeletal. Is possible she pulled a muscle in her groin or her psoas muscle. I do not think this is kidney stone or more serious pathology. Patient is given IM morphine which does improve her symptoms. She already took NSAIDs prior to arrival. She states she does have pain with range of motion of her hip I did obtain pelvic and hip x-ray. This is interpreted by myself as well as radiology as no acute fracture or dislocation. Patient will be discharged with a course of Flexeril. She has outpatient follow-up with orthopedics on Saturday. She is neurovascularly intact. She will be discharged home. She is counseled on return precautions. Patient verbalizes agreement understand this plan. Radiography Diagnostic Testing: Clinical Impression(s) from Imaging Studies Hip/Pelvis X-Ray 10/21/21 15:28 IMPRESSION: No evidence of displaced pelvic or hip fracture. Electronically Signed: Elliott Cain MD at 15:41 EDT , Discharge Plan Triage Chief Complaint: Back ED Provider: Fatemeh Boothe Dx/Rx/DC Orders Clinical Impression: Strain of left groin, Low back strain Instructions: ED Back Sprain/Strain, ED Groin Strain Prescriptions: New cyclobenzaprine 10 mg tablet 10 mg PO TID PRN (Reason: muscle spasm) Qty: 14 0RF No Action simvastatin 20 MG tablet 20 mg PO QHS Label Comments: take 1 tablet by mouth at bedtime Rx Instructions: lower cholesterol escitalopram oxalate 10 MG tablet 5 mg PO DAILY Primary Care Provider: Partha Mckeon Referrals: Partha Mckeon MD [Primary Care Provider] - Disposition Disposition: Home, Self Care Discharge Date/Time: 10/21/21 16:22
[2021-10-21] MEDS: Ondansetron ODT 4 MG Tablet PO (15:19)
[2021-10-21] MEDS: Morphine 4 MG/ML Syringe IM (15:19)
--- NOTE | 2021-10-21 15:28 | RAD_ITS ---
EXAM: XR LEFT HIP WITH PELVIS WHEN PERFORMED, 2 OR 3 VIEWS CLINICAL INDICATION: Injury/Pain TECHNIQUE: Two or three views of the left hip with pelvis when performed. This report was created using [employer] report generation technology. COMPARISON: None. FINDINGS: BONES/JOINTS: No acute abnormality. SOFT TISSUES: Normal. No soft tissue swelling or gas. RAD/HIP, UNI W/ Pelvis 2-3 Views IMPRESSION: No evidence of displaced pelvic or hip fracture. Electronically Signed: Elliott Cain MD at 15:41 EDT ,
[2021-10-21] MEDS: cycloBENZAPRine HCl 10 MG Tablet PO (16:18)
== END 2021-10-21 16:22 | disposition home or self-care (01) ==
PROVIDERS: Emergency Provider Emergency Medicine; PCP Family Medicine; Visit Provider Emergency Medicine
DX: S39.012A Strain of muscle, fascia and tendon of lower back, initial encounter (principal); S39.011A Strain of muscle, fascia and tendon of abdomen, initial encounter; X58.XXXA Exposure to other specified factors, initial encounter; Y93.B9 Activity, other involving muscle strengthening exercises; E78.00 Pure hypercholesterolemia, unspecified; Z79.899 Other long term (current) drug therapy
CPT/HCPCS: 73502; 96372; 99283

== ENCOUNTER 2021-10-22 14:15 | Emergency (ER) | payer MEDICARE, SELFPAY ==
[2021-10-22 14:16] VITALS: BP 137/86; PULSE 82; RESP 16; TEMP 36.9; O2SAT 98; BMI 22.7
--- NOTE | 2021-10-22 14:39 | EDS_ITS ---
HPI History of Present Illness Chief Complaint: Other, Pain/Inj Narrative Narrative: Patient presents with left groin pain. This started after workout 2 days ago she was seen yesterday for similar symptoms. There are times where she cannot even get out of bed when she moves the wrong way. She can actually walk but it is bending and moving that provides her pain. She has no abdominal pain or flank pain. She has no new injury. She has no fever chills or urinary symptoms PFSH PFSH Medical History Hemorrhoids High cholesterol Home Medications escitalopram oxalate 10 mg tablet 5 mg PO DAILY mood stabilizer 10/30/17 [History Last Taken 07/21/182199] simvastatin 20 mg tablet 20 mg PO QHS 10/30/17 [History Last Taken 07/21/182199] cyclobenzaprine 10 mg tablet 10 mg PO TID PRN muscle spasm #14 tabs 10/21/21 [Rx Last Taken Unknown] oxycodone-acetaminophen 5 mg-325 mg tablet (Percocet) 1 tab PO Q6H PRN pain 3 days #12 tabs 10/22/21 [Rx Last Taken Unknown] Allergy/AdvReac Type Severity Reaction Status Date / Time erythromycin base Allergy Unknown Verified 10/22/21 14:15 Tetracyclines Allergy Unknown Verified 10/22/21 14:15 codeine AdvReac Other Verified 10/22/21 14:15 hydrocodone [From Vicodin] AdvReac Vomiting Verified 10/22/21 14:15 Family History Mother Breast cancer Gallbladder cancer Hypertension Father Hypertension Parkinson disease Surgical History History of Hx of appendectomy Hx of colonoscopy Hx of tubal ligation Social History Smoking Status: Never smoker second hand exposure: No alcohol intake: current alcohol intake frequency: a few times a week substance use type: does not use caffeine: Yes what type of physical activity do you participate in: walking and weight traini ng frequency: 3-4 times per week ROS ROS ED ROS Narrative Social: Noncontributory Medications: Reviewed Past medical history: Reviewed Review of systems General: No other injury Cardiovascular: Patient denies any chest pain or palpitations Chest wall: No chest wall contusions Respiratory: There is no shortness of breath GI: There is no nausea vomiting diarrhea or abdominal pain, no abdominal wall contusions Skin: No lacerations or abrasions Neurological: No weakness or paresthesias Back: No back pain, no problems with ambulation Musculoskeletal: As in HPI All other systems are reviewed and normal EXAM Physical Exam Narrative Exam Narrative: Physical exam General: Patient appears somewhat uncomfortable Head: Normocephalic, Atraumatic Cardiovascular: Regular rate, Regular rhythm Respiratory: No distress, CTA bilaterally Abdomen: Soft, Nontender, Nondistended Back: Nontender, Normal Inspection. Negative for: CVA tenderness Extremities: There is tenderness over her groin region, I can also reproduce it with movement of the hip, she has no buttock pain or pain in the SI joint, she has no pain with logrolling of the hip. Skin: Normal color, No rash Neurological: Alert, Normal Strength, Normal Sensation Psychological: Normal affect Const Vital Signs: 10/22/21 14:16 Temperature 98.5 F Temperature Source Temporal Pulse Rate 82 Respiratory Rate 16 Blood Pressure 137/86 H Blood Pressure Mean 103 Pulse Ox 98 Oxygen Delivery Method Room Air MDM MDM MDM Narrative Medical decision making narrative: I do believe this is a groin injury, she had a normal x-ray yesterday she is on muscle relaxants but no other analgesics. I feel comfortable prescribing a small amount of analgesics. She was concerned for a kidney stone but she does not have any flank pain urinary symptoms and she has reproducible musculoskeletal pain. Discharge Plan Triage Chief Complaint: Other, Pain/Inj ED Provider: Artie Telles Dx/Rx/DC Orders Clinical Impression: Strain of left groin, Groin pain Instructions: Taking Opioid Medicines Prescriptions: New oxycodone-acetaminophen [Percocet] 5-325 mg tablet 1 tab PO Q6H PRN (Reason: pain) 3 Days Qty: 12 0RF No Action simvastatin 20 MG tablet 20 mg PO QHS Label Comments: take 1 tablet by mouth at bedtime Rx Instructions: lower cholesterol escitalopram oxalate 10 MG tablet 5 mg PO DAILY cyclobenzaprine 10 mg tablet 10 mg PO TID PRN (Reason: muscle spasm) Qty: 14 0RF Primary Care Provider: Partha Mckeon Referrals: Partha Mckeon MD [Primary Care Provider] - 2 Days Disposition Disposition: Home, Self Care
[2021-10-22] MEDS: oxyCODONE 5 MG Tablet PO (14:44)
[2021-10-22] MEDS: Ondansetron ODT 4 MG Tablet PO (14:44)
== END 2021-10-22 15:01 | disposition home or self-care (01) ==
LOC: ED 14:58
PROVIDERS: Emergency Provider Emergency Medicine; PCP Family Medicine; Visit Provider Emergency Medicine
DX: S39.011A Strain of muscle, fascia and tendon of abdomen, initial encounter (principal); R10.32 Left lower quadrant pain; X58.XXXA Exposure to other specified factors, initial encounter; E78.00 Pure hypercholesterolemia, unspecified; Z79.899 Other long term (current) drug therapy
CPT/HCPCS: 99282

== ENCOUNTER 2022-10-22 15:30 | Outpatient (RCR) | payer MEDICARE, SELFPAY ==
--- NOTE | 2022-09-21 11:54 | HP.PTEVAL_ITS ---
Patient's Visit Information Visit Information Visit Information: GWYN WISEMAN is a 67 year old F referred to Physical Therapy by COLTON JIMENES with a diagnosis of strain of facia tendon of posterior muscle group of L thigh level. Date of Evaluation: 09/21/22 Physical Therapist: Mehdi Mercer DPT Visit Plan Frequency: 2x /Week Duration: 4 Weeks Plan: Start with DN to gluteal region, and hip intrinsic muscle/tendon. Add hip IR/ER strengthening as tolerated. Progress hip ER and hip extension mobility. Subjective Subjective: Pt. is here today for her initial evaluation with diagnosis of strain of facia tendon of posterior muscle group of L thigh level. Pt. reports no mech of injury, but started to have increased pain near the beginning of july. 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 Pt. reports no much pain with standing and walking, but more with sitting on her R side. Reports pain seems to be associated with pressure to her gluteal region. Pt. has a history of R labral tear, but healed and is doing much better. Pt. typically gets massages x2 per month, but has been out of town and has not had one in a few months. No N/T in either LE. Pt. is hopeful to reduce symptoms in order to get back to all recreational and work activities without increase in symptoms. Pain L gluteal region: Pain Intensity (Out of 10): 2 Pain Intensity Range: 0 and 4 Objective Objective: POSTURE: Pt. has good posture in stance. Pt. has no lateral wt. shifting, no off loading noted. Normal lumbar posture. PALPATION: Pt. has no pain with spring testing throughout lumbar spine. Pt. has tenderness along gluteal region, near sacral boarder. Closer to hip intrinsic muscle attachmens. NEURO: normal throughout BLEs. ROM: Lumbar spine: full without increase in symptoms. L hip: flexion 120deg mild anterior hip pain, IR full mild groin pain, ER 50deg tightness noted. Abd 40deg No effect, ext 20deg NE. MMT: Pt. has good strength throughout BLEs, 5/5 throughout, except L hip abd 4+/5, ER 4+/5, IR 4+/5. Core strength fair+. GAIT: pt. has normal gait pattern. No Trendelenburg, no lateral translation, no antalgic pattern. Special Tests L Hip RACHEL - Intraarticular Pathology: Negative L Hip FADDIR - Labrum: Positive L Hip Impingement Provocation - Labrum: Negative L Hip Trendelenberg - Glut Medius: Negative Balance/Special Test Scores Lower Extremity Functional Score: 68 Goals Goal 1:: LTG: pt. to be I with HEP for L hip strengthening and stretching. Goal Time Frame: 4-6 Weeks Goal 2:: LTG: Pt. to have 5/5 strength throughout LLE without increase in symptoms. Goal Time Frame: 4-6 Weeks Goal 3:: LTG: Pt. to complete all work and gym related activities without increase in symptoms. Goal Time Frame: 4-6 Weeks Rehabilitation Potential Physical Therapy Diagnosis: Pt. has signs and symptoms consistent with strain of facia tendon of posterior muscle group of L thigh level. pt. appears to have a strain of the intrinsic muscle/tendon of her L hip. She would benefit from dry needling, stretching and eventual strengthening of this tissue to reduce symptoms and get back to all recreational and work activities. Rehabilitation Potential: Excellent Anticipated Interventions Patient/Client Instruction: Educate patient on: Condition, Plan of Care, Risk Factors and Benefits of Fitness Program For the Purpose of:: To improve self management, To prevent re-injury, To improve ability to perform tasks related to life management and To improve tolerance to ADL's Therapeutic Exercise to Include: Strength training, Power training, Endurance training, Flexibilty training and Active ROM For the Purpose of:: To decrease pain, To increase ROM, To improve nutrient delivery to tissue, To increase oxygenation perfusion, To improve muscle p erformance and motor function, To improve ability to perform ADL's, To increase tolerance to activity/condition/position, To improve performance and independence with ADL's and To decrease level of supervision to perform tasks Manual Therapy Techniques to Include: Trigger point massage, Mobilization, Functional dry needling and Soft tissue mobilization For the Purpose of:: To decrease pain, To increase ROM, To improve nutrient delivery to tissue, To increase oxygenation perfusion, To decrease soft tissue restriction and To increase flexibility/ROM Text: Thank you for the opportunity to evaluate your patient. For Medicare and Medicare HMO plans, please review the plan of care and approve it. It will need to be FAXED BACK to us at [phone] for Medicare purposes. For Medicare only, by signing this I certify the plan of care. Please let me know if there are questions or concerns regarding this plan of care. Physician Signature: Date:
== END 2022-10-22 19:00 | disposition home or self-care (01) ==
LOC: PT 15:30
PROVIDERS: PCP Family Medicine; Referring Provider Physician Assistant Medical; Visit Provider Physician Assistant Medical
DX: S76.311D Strain of muscle, fascia and tendon of the posterior muscle group at thigh level, right thigh, subsequent encounter (principal)
CPT/HCPCS: 97110; 97140; 97161

== ENCOUNTER → 2022-12-31 | Outpatient (CLI) | payer MEDICARE, SELFPAY ==
--- NOTE | 2022-12-31 15:42 | ST.MBS ---
Modified Barium Swallow Patient Information Study Date: 12/31/22 Study Time: 12:50 Direct Billable Minutes: 51 Total Minutes procedure & reportin Diagnosis: Pharyngoesophageal dysphagia (R13.14) Referring Physician: Partha Mckeon Reason for Referral: Objectively assess swallow function, assess risk for aspiration, and determine recommendations for least restrictive diet textures and compensatory strategies to improve safety of swallow. Medical History: The patient is a 67-year-old female who reported concerns to her PCP for coughing/choking spells on nothing, her own saliva, or sometimes liquids. She reports some difficulty swallowing meats or dry foods like crackers without water. Water helps to wash the foods down. She admits to eating/drinking quickly. She was unsure, but believes she had an EGD with esophageal dilation ~6 years ago with the [facility]. Current Diet Ordered: Regular textures / Thin liquids Dentition: WNL Mental Status: WNL Respiratory Status: Oxygenating on Room Air Penetration-Aspiration Scale Penetration-Aspiration Scale: OBJECTIVE ASSESSMENT OF SWALLOW FUNCTION (QUANTITATIVE ? PER TRIAL): PENETRATION / ASPIRATION SCALE (GORMAN): 1 = does not enter airway 2 = enters airway/above vocal folds/ejected 3 = enters airway/above vocal folds/not ejected 4 = enters airway/contacts vocal folds/ejected 5 = enters airway/contacts vocal folds/not ejected 6 = enters airway/below vocal folds/ejected 7 = enters airway/below vocal folds/not ejected despite effort 8 = enters airway/below vocal folds/no effort VIDEOFLOROSCOPIC SCALE SCORE (GORMAN): Grade I = aspiration of material that has penetrated into the laryngeal vestibule, intact cough reflex Grade II = aspiration < 10 % of the bolus, intact cough reflex Grade III = aspiration of < 10 % of the bolus, reduced cough reflex or aspiration of > 10 % of the bolus, intact cough reflex Grade IV = aspiration of > 10 % of the bolus, reduced cough reflex Penetration-Aspiration Scale Score Thin Liquid via teaspoon: Result: 1= does not enter airway Thin Liquid via teaspoon Trial 2: Result: 1= does not enter airway Thin Liquid via small single sip: cup: Result: 1= does not enter airway [place] Thick Liquid via small single sip: cup: Result: 1= does not enter airway Pudding via teaspoon: Result: 1= does not enter airway Comment: Esophageal screen: retention in mid and lower esophagus which effectively cleared with a thin liquid wash Cookie: Result: 1= does not enter airway Thin liquia via small single sip: cup - A-P view: Result: 1= does not enter airway Thin Liquid via single sip: straw: Result: 1= does not enter airway Thin Liquid via sequential sips:straw: Result: 1= does not enter airway Oral Phase Labial Seal: No Labial Escape Tongue Control During Bolus Hold: Posterior escape of less than half of bolus Bolus Preparation/Mastication: Timely and efficient chewing and mashing Bolus Transport/Lingual Motion: Brisk tongue motion Oral Residue: Residue collection on oral structures Pharyngeal Phase Initiation of Pharyngeal Swallow: Bolus head at posterior laryngeal surgace of epiglottis Soft Palate Elevation: No bolus between soft palate and pharyngeal wall Laryngeal Elevation: Comp. Superior move thyroid cart w/comp. apprx arytenoid cart-epig pet Anterior Hyoid Excursion: Complete anterior movement Epiglottic Movement: Complete inversion Laryngeal Vestibule Closure at Height of Swallow: Complete; no air/contrast in laryngeal vestibule Pharyngeal Stripping Wave: Present - complete Pharyngoesophageal Segment Opening: Parital distension and partial duration; parital obstruction of flow Tongue Base Retraction: Narrow column of contrast between tongue base & post. pharyngeal wall Pharyngeal Residue: Collection of residue within or on pharyngeal structures Esophageal Phase Esophageal Clearance: Esophageal retention w/ retrograde flow through pharyngoesophageal seg Diagnosis/Impression Diagnosis: Oropharyngeal swallow function grossly WNL; Esophageal dysphagia (R13.14) Impression: Timely mastication. Good airway closure during the swallow. No aspiration or laryngeal penetration observed. Collection of residue in pyriforms, which flowed from trace retention of liquids observed in the upper esophagus. Retention of pudding in mid and lower esophagus, which effectively cleared with use of thin liquid wash. [employer]PER[employer]OR is concerned the patient may be experiencing her swallowing difficulty due to the above mentioned esophageal deficits. Will recommend GI consult. Recommendations Diet: Regular Textures (Moisten dry textures with extra sauce/gravy) and Thin Liquids Compensatory Strategies: Small Bites, Small Sips, Slow Rate, Alternate bites/solids and sips/liquids (1:1 ratio (Take a sip after each bite)), Sitting upright and Remain sitting upright for 30 minutes after PO intake Recommend Repeat Modified Barium Swallow: No Need for Skilled Speech Therapy Services: No Recommended Referrals: GI Consult Education Completed: 1. Described result of evaluation. Status Active ST Patient: Active Contact Information [facility] Speech Therapy:: Sangeetha Dwyer M.A. [facility]-[employer] Speech-Language Pathologist [facility] [address] [place] [address] [email or web address] [phone]
== END | disposition home or self-care (01) ==
PROVIDERS: PCP Family Medicine; Referring Provider Family Medicine; Visit Provider Family Medicine
DX: R13.14 Dysphagia, pharyngoesophageal phase (principal)
CPT/HCPCS: 74230; 92611